=== PATIENT | female | born 1990 | race Caucasian/White ===

== ENCOUNTER → 2020-07-10 | Outpatient (CLI) | payer OTHER, SELFPAY ==
--- NOTE | 2020-07-10 13:00 | CER_PTH ---
PATIENT: JULIA CHAVEZ LOC: [facility] U#:[id number] AGE/SX: 30/F ROOM: RE07/10/[address]: Dr. Sriram Moses MD : 1990 BED: DIS: 07/10/2020 SPEC #: [id number] RECD: 07/10/20 14:21 STATUS: ROXANNA CAT #: [id number] JACQUELINE: 07/10/20 13:[address]: Sriram Moses DEPT: SURGICAL PATHOLOGY RECD BY: Tg Johnson Tissues: Uterine cervix, NOS Procedures: Surgery Specimen Level IV HEADER OPERATION: Cervical polyp removal PRE-OP DIAGNOSIS: N92.6, N93.0, N84.1 TISSUE SUBMITTED: Cervical polyp MICROSCOPIC DIAGNOSIS Cervical polyp, polypectomy: Benign lower uterine endometrial polyp with simple cystic hyperplasia without atypia, inflamed. AM:baljinder 07/12/2020 MICROSCOPIC DESCRIPTION Slides are reviewed. GROSS DESCRIPTION Received in fixative is one container labeled with the patient's name and designated cervical polyp. The specimen consists of a polypoid fragment of reddish-azevedo soft tissue measuring 1.5 x 1.2 x 0.2 cm. The specimen is totally submitted in one cassette. / AM:baljinder 07/11/20 TC:1 CPT: 28379
[2020-07-18 15:50] LABS: HPV Reflexed? NOT INDICATED
== END | disposition home or self-care (01) ==
LOC: LABSPEC 14:04
PROVIDERS: Visit Provider Obstetrics & Gynecology
DX: N85.01 Benign endometrial hyperplasia (principal); N92.6 Irregular menstruation, unspecified; N93.0 Postcoital and contact bleeding; Z12.4 Encounter for screening for malignant neoplasm of cervix
CPT/HCPCS: 88175; 88305; G0145

== ENCOUNTER → 2020-07-31 09:32 | Outpatient (CLI) | payer OTHER, SELFPAY ==
[2020-07-31 11:10] LABS: Progesterone Level 0.25 ng/mL (See Comment)
[2020-07-31 11:14] LABS: Prolactin 10.2 ng/mL; Thyroid Stim Hormone (TSH) 1.63 uIU/mL (0.358-3.74)
== END ==
PROVIDERS: Visit Provider Obstetrics & Gynecology
DX: N92.6 Irregular menstruation, unspecified (principal)
CPT/HCPCS: 36415; 84144; 84146; 84443

== ENCOUNTER 2020-08-06 05:58 | Day surgery (SDC) | payer OTHER, SELFPAY ==
[2020-08-02 15:04] LABS: Hematocrit 46.9 % (37-47); Hemoglobin 16.4 g/dL (12.0-15.0); Mean Corpuscular Hgb 31.5 pg (27.0-32.0); Mean Platelet Vol. 10.4 fl (6.2-12.0); Platelet Count 243 K/mm3 (150-450); RBC Distribution Width CV 12.1 % (11.6-14.6); RBC Distribution Width SD 39.8 fl (35.1-43.9); Red Blood Count 5.21 M/mm3 (4.2-5.4); White Blood Count 10.2 K/mm3 (4.4-11.0)
[2020-08-02 15:13] LABS: Partial Thromboplast Time 28.7 Seconds (24.1-36.2); Prothrombin Time (Protime)PT. 12.8 SECONDS (11.7-14.9)
[2020-08-02 15:37] LABS: Internal QC Validated? YES +Cl - CLEAR BKGD; Pregnancy, Serum, hCG Quali. NEGATIVE Negative
--- NOTE | 2020-08-05 19:43 | HP.PCM_ITS ---
History and Physical Date of Admission: 08/06/20 Surgical History and Physical Natalie Vieira, a 30 year old female 0 0 0 0 0, presents for D and C and hysteroscopy on August 06, 2020 at 1:15. -- PC Bleeding, Polyp with Simple EM Hyperplasia -- Post Coital Bleeding which began 3-4 weeks ago. Ada claims it started garcia ddenly and has been present 3-4 weeks. It occurs intermittantly.; It occurs With [facility]. It is located in the vagina.; It is located in the cervix. Ada characterizes it to be non-radiating. Ada characterizes the quality spotting/bleeding. Severity is moderate and not improving; Additional comments are: no cramps with menses for a couple years since she gained about 20 lbs. MEDICATIONS HISTORY: Current medications prescribed by our practice are: 1. Prometrium 200 mg capsule, One PO Q HS for 7 nights ALLERGIES: Lavender, Sneezing Infections - None Illnesses - no serious past illnesses Accidents - None Hospitalizations - None Review of Systems: GENERAL - Denies fever, or chills SKIN - Denies skin changes EYES - Denies visual changes EARS - Denies difficulty hearing NOSE - Denies nasal congestion or bleeding MOUTH - Denies sore throat or difficulty swallowing NECK - Denies pain or swelling RESPIRATORY - Denies shortness of breath or wheezing CARDIOVASCULAR - Denies palpitations or chest pain GASTROINTESTINAL - Denies nausea, vomiting, diarrhea, constipation GENITOURINARY - Denies dysuria, frequency of urination, incontinence of urine MUSCULOSKELETAL - Denies joint or muscle pain NEUROLOGICAL - Denies localized numbness or weakness PSYCHIATRIC - Denies depression or anxiety ENDOCRINE - Denies heat or cold intolerance, weight loss or gain HEMATO-IMMUNOLOGIC - Denies excesive bleeding with cuts SOCIAL HISTORY: Alcohol Use - drinks occasionally Smoking - Never Diet - no special diet Lifestyle - moderate stress lifestyle and Exercise - active work Seat Belt Use - always Employer - [employer] Job Description - [place] Illicit Drug Use - None Sexual Activity - ACTIVE ONE PARTNER Spouse-Sig Other Name - Sriram Vieira Spouse-Sig Other Occupation - Laser Printing Operator Control - None-attempting pregancy FAMILY HISTORY: MENSTRUAL HISTORY: LMP Known?- DefiniteAmount/Duration - 7 to 10 days, Regularity - Irregular, Frequency - variable days, LMP - 07/09/20, Age Onset Menarche - 14 PAST PREGNANCIES: Total Pregnancies - 0; Full Term Pregnancies - 0; Premature - 0; Abortions, Induced - 0; Abortions, Spontaneous - 0; Ectopics - 0; Multiple Births - 0; Living Children - 0 SURGICAL HISTORY: 1. none PHYSICAL EXAM BP- 114/76 Sitting, Right arm, regular cuff Weight- 204.21231 lbs Height- 66 inch BMI:33.00 CONSTITUTIONAL - NAD, well nourished, and well developed SKIN - No rash, lesions, or ulcers HEENT - Normocephalic, PERRLA, EOMI NECK - No nodes, no nuchal rigidity and thyroid normal size and texture LYMPH NODES - Palpation of lymph nodes in neck and groins within normal limits LUNGS - CTA x2 without wheezes, crackles or rales CARDIAC - Regular rate and rhythm without rubs, murmurs, or gallops BREAST - No dominant masses, no tenderness, no axillary adenopathy, no nipple discharge, no skin changes ABDOMEN - Without hepatosplenomegaly, distention, masses, rebound, or guarding; normal bowel sounds; no hernias EXTREMITIES - No edema or calf tenderness NEUROLOGICAL - Cranial nerves II-XII grossly intact PSYCHIATRIC - A and O to time, place, person, mood and affect External Genital Vagina - non-tender without lesions Urethra/Urethral Meatus - non-tender Bladder - non-tender Vagina - vaginal gant are pink and moist without loss of rugae and no evidence of atropy Cervix - without cervical motion tenderness and has normal size and features without evident lesions and 1 cm bleeding polyp removed Uterus - 5-6 cm in size, mobile and nontender Adnexa - clear without masses or tenderness ASSESSMENT/PLAN: Postcoital Bleeding; Polyp with Simple EM Hyperplasia Reviewed results with patient and will proceed with H/S and D and C. Discussed RBAs and all questions answered.
[2020-08-06] VITALS (7 sets, daily range): BP systolic 116–134; BP diastolic 51–84; PULSE 62–90; RESP 16–18; TEMP 36.1–36.3; O2SAT 97–100; BMI 33.5
[2020-08-06 06:34] LABS: Internal QC Validated? YES +Cl - CLEAR BKGD; Pregnancy, Urine Negative Negative
[2020-08-06] MEDS: Lactated Ringers 1,000 ML 100 ML IV (06:47)
[2020-08-06] MEDS: Cefotetan 2 GM in 0.9% NS 100 ML IV (07:23)
--- NOTE | 2020-08-06 07:30 | EMB_PTH ---
PATIENT: JULIA CHAVEZ LOC: [facility] [place] U#:[id number] AGE/SX: 30/F ROOM: RE08/06/[address]: Dr. Sriram Moses MD : 1990 BED: DIS: 08/06/2020 SPEC #: [id number] RECD: 08/06/20 09:20 STATUS: ROXANNA CAT #: [id number] JACQUELINE: 08/06/20 07:[address]: Sriram Moses DEPT: SURGICAL PATHOLOGY RECD BY: Merry Kumar ENTERED: 08/06/20 10:23 SP TYPE: ENDOM BX/C REGINE DR: No Primary Care Phys Tissues: Endometrium, NOS Procedures: Surgery Specimen Level IV HEADER OPERATION: Hysteroscopy, D & C PRE-OP DIAGNOSIS: Polyp with simple EM hyperplasia TISSUE SUBMITTED: Endometrial curettings MICROSCOPIC DIAGNOSIS Endometrium, curettage: Simple and focal complex hyperplasia without atypia. AM:baljinder 08/07/2020 MICROSCOPIC DESCRIPTION Slides are reviewed. GROSS DESCRIPTION Received in fixative is one container labeled with the patient's name and designated endometrial curettings. The specimen consists of multiple irregular fragments of red-azevedo soft tissue that in aggregate measure 5.5 x 3 x 0.2 cm. The specimen is totally submitted in two cassettes. / AM:baljinder 08/06/20 TC:5 CPT: 73800
--- NOTE | 2020-08-06 07:50 | PCM.OPRPT ---
Report of Operation Date of Procedure: 08/06/20 Pre-Operative Diagnosis: Simple Endometrial Hyperplasia Post-Operative Diagnosis: Simple Endometrial Hyperplasia Surgery/Procedure Performed:: Diagnostic Hysteroscopy, Dilation and Curettage Description of Surgical Findings:: 8 cm endometrial cavity without evidence of polyps or fibroids. [place] endometrium. Type of Anesthesia:: MAC Anesthesiologist: Melyssa Mensah Specimen's removed: Endometrial curettings Estimated Blood Loss (mL): Minimal Fluids Replaced: Crystalloid Description of Procedure: Surgeon: Sriram Moses MD, FACOG Indications: This is a 30 year old patient who has the above diagnosis. The patient has been counseled regarding the risk and indications of this procedure including the possibility of bleeding, infection, and injury to surrounding structures such as bowel bladder. All questions were answered and we consider the patient well-informed. Procedure: The patient was taken to the operating room where after induction of general anesthesia, she was placed in the dorsolithotomy position and prepped and draped in the usual sterile fashion. The bladder was drained of approximately 75 cc of clear yellow urine with a catheter. Anterior cervix was grasped with the tenaculum and dilated to about 4-5 mm. A 3 mm hysteroscope was placed in the uterus of the above findings were noted. Cervix was dilated to about 7-8 mm and uterus was gently curetted removing all contents. Hysteroscope was reinserted and all material was noted to be removed. In the course of the procedure approximately 100 cc of saline distending media was used and virtually all of this was recovered. Patient tolerated procedure well was taken to recovery room in satisfactory condition sponge instrument and needle counts were all reportedly correct. Estimated blood loss for the case was minimal. Specimens to pathology was endometrial curettings Complications: None Grafts/Implants Used: None - Complications None - Admit VTE Documentation VTE Present on Admission: Yes VTE Mechan Device Prophylaxis: SCD's
--- NOTE | 2020-08-06 07:54 | PCM.DC.D&C ---
Discharge Diet: No Restrictions Discharge Activity: Return to Normal Activity, May Shower, May Take a Tub Bath May resume sexual activity in: 1-2 weeks Call your doctor if you observe: Fever of 101 or Higher, Inability to urinate, Inability to have a bowel movement Allergies/Adverse Reactions: Allergies lavender Allergy (Uncoded 08/06/20 06:35) Other runny nose, itching eyes and throat Medications to take at Discharge Ascorbic Acid [Vitamin C] 500 mg PO DAILY 07/30/20 Cyanocobalamin [Vitamin B12] 500 mcg PO DAILY@0800 07/30/20 Famotidine [Pepcid] 20 mg PO DAILY PRN PRN 07/30/20 [place]-3 Fatty Acids/Fish Oil [Fish Oil 1,000 mg Capsule] 1 ea PO DAILY 07/30/20 Primary Care Physician: Care Physician,No Primary [Primary Care Provider] - Test Results: Test results from this visit will be discussed in further detail at your follow-up appointment, if applicable. Please Follow Up With: Sriram Moses MD When: 2 to 3 weeks
== END 2020-08-06 09:10 | disposition home or self-care (01) ==
LOC: SDC 05:59 → AC 05:59
PROVIDERS: Anesthesiology; Referring Provider Obstetrics & Gynecology; Visit Provider Obstetrics & Gynecology
PROC: 0UDB8ZZ Extraction of Endometrium, Via Natural or Artificial Opening Endoscopic (ICD-10-PCS; CPT 58558; principal; 2020-08-06 07:20)
DX: N85.01 Benign endometrial hyperplasia (principal); N93.0 Postcoital and contact bleeding; Z20.822 Contact with and (suspected) exposure to COVID-19; Z87.891 Personal history of nicotine dependence; K21.9 Gastro-esophageal reflux disease without esophagitis
CPT/HCPCS: 58558; 36415; 81025; 84703; 85027; 85610; 85730; 86850; 86900; 86901; 87426; 88305; C9803; J7120; J2405

== ENCOUNTER → 2020-08-24 11:19 | Outpatient (CLI) | payer OTHER, SELFPAY ==
[2020-08-06 06:36] VITALS: BMI 33.5
[2020-08-24 14:02] LABS: Progesterone Level 0.53 ng/mL (See Comment)
== END ==
PROVIDERS: Visit Provider Obstetrics & Gynecology
DX: N97.0 Female infertility associated with anovulation (principal); Z51.81 Encounter for therapeutic drug level monitoring
CPT/HCPCS: 36415; 84144